=== PATIENT | female | born 1990 | race American Indian/Alaskan Native ===

== ENCOUNTER 2020-01-14 01:09 | Emergency (ER) | payer SELFPAY ==
[2020-01-14 02:07] VITALS: BP 123/83
[2020-01-14] MEDS ORDERED: dexAMETHasone 20 MG/5 ML VIAL IV ONE (04:29)
[2020-01-14] MEDS ORDERED: IBUPROFEN ORAL LIQD 100 MG/5 ML ORAL.LIQD PO ONE (04:34)
--- NOTE | 2020-01-14 05:59 | Emergency Department Report ---
ED ENT HPI - General Chief complaint: Sore Throat Stated complaint: THROAT PAIN/CHEST PAIN Time Seen by Provider: 01/14/20 04:29 Source: patient Mode of arrival: Ambulatory Limitations: No Limitations - History of Present Illness Initial comments: Patient is a 29-year-old -[place] female who presents with sore throat x2 days. Patient has history of recurrent strep throat. This episode started 2 mornings ago. Patient states 410 pain and burning with swallowing. Patient denies history of asthma or bronchitis. She states nocturnal fever no T-max recorded at home temp is 98.8 in triage today there is no tachycardia there is no nausea vomiting. There is no shortness of breath no stridor no sinus pain or pressure.. There is no ear pain. There are no palpitations, dizziness, or lightheadedness. Patient is tolerating p.o. intake MD complaint: sore throat Onset/Timin -: days(s) Location: throat Severity: moderate Severity scale (0 -10): 5 Quality: burning, sharp Consistency: constant Improves with: none Worsens with: swallowing, eating Associated Symptoms: fever, pain with swallowing, sore throat - Related Data Previous Rx's Medication Instructions Recorded Last Taken Type Benzocaine/Mentho [Cepacol X 8 each MM Q4H PRN #3 packet 01/14/20 Unknown Rx Strength] Clindamycin [Clindamycin CAP] 300 mg PO Q8H 10 Days #30 cap 01/14/20 Unknown Rx Ibuprofen [Motrin 800 MG tab] 800 mg PO Q8HR PRN #30 tablet 01/14/20 Unknown Rx dexAMETHasone [Decadron] 4 mg PO Q12H 2 Days #4 tablet 01/14/20 Unknown Rx Allergies Allergy/AdvReac Type Severity Reaction Status Date / Time morphine Allergy Hives Verified 01/14/20 02:14 ED Dental HPI - General Chief complaint: Sore Throat Stated complaint: THROAT PAIN/CHEST PAIN Time Seen by Provider: 01/14/20 04:29 Source: patient Mode of arrival: Ambulatory Limitations: No Limitations - Related Data Previous Rx's Medication Instructions Recorded Last Taken Type Benzocaine/Mentho [Cepacol X 8 each MM Q4H PRN #3 packet 01/14/20 Unknown Rx Strength] Clindamycin [Clindamycin CAP] 300 mg PO Q8H 10 Days #30 cap 01/14/20 Unknown Rx Ibuprofen [Motrin 800 MG tab] 800 mg PO Q8HR PRN #30 tablet 01/14/20 Unknown Rx dexAMETHasone [Decadron] 4 mg PO Q12H 2 Days #4 tablet 01/14/20 Unknown Rx Allergies Allergy/AdvReac Type Severity Reaction Status Date / Time morphine Allergy Hives Verified 01/14/20 02:14 ED Review of Systems ROS: Stated complaint: THROAT PAIN/CHEST PAIN Other details as noted in HPI Constitutional: chills, fever Eyes: denies: eye pain, eye discharge, vision change ENT: throat pain Respiratory: denies: cough, shortness of breath, wheezing Cardiovascular: denies: chest pain, palpitations Endocrine: no symptoms reported Gastrointestinal: denies: abdominal pain, nausea, vomiting, diarrhea Genitourinary: denies: urgency, dysuria, discharge Musculoskeletal: denies: back pain, joint swelling, arthralgia Skin: denies: rash, lesions Neurological: as per HPI Psychiatric: denies: anxiety, depression Hematological/Lymphatic: denies: easy bleeding, easy bruising ED Past Medical Hx - Past Medical History Previous Medical History?: Yes Hx Asthma: Yes 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 - Surgical History Past Surgical History?: Yes Additional Surgical History: X 2 - Social History Smoking Status: Current Every Day Smoker Substance Use Type: Marijuana - Medications Home Medications: Home Medications Medication Instructions Recorded Confirmed Last Taken Type Benzocaine/Mentho [Cepacol X 8 each MM Q4H PRN #3 packet 01/14/20 Unknown Rx Strength] Clindamycin [Clindamycin CAP] 300 mg PO Q8H 10 Days #30 cap 01/14/20 Unknown Rx Ibuprofen [Motrin 800 MG tab] 800 mg PO Q8HR PRN #30 tablet 01/14/20 Unknown Rx dexAMETHasone [Decadron] 4 mg PO Q12H 2 Days #4 tablet 01/14/20 Unknown Rx ED Physical Exam - General Limitations: No Limitations General appearance: alert, in no apparent distress - Head Head exam: Present: atraumatic, normocephalic, normal inspection - Eye Eye exam: Present: normal appearance, PERRL, EOMI Pupils: Present: normal accommodation - ENT ENT exam: Present: mucous membranes moist, TM's normal bilaterally, normal external ear exam - Expanded ENT Exam Expanded Throat exam: Positive: tonsillar erythema, tonsillomegaly, tonsillar exudate, other (uvula midline no stridor ). Negative: R peritonsillar mass, L peritonsillar mass - Neck Neck exam: Present: normal inspection, full ROM, lymphadenopathy. Absent: tenderness, meningismus, thyromegaly - Respiratory Respiratory exam: Present: normal lung sounds bilaterally. Absent: respiratory distress, wheezes, stridor, chest wall tenderness - Cardiovascular Cardiovascular Exam: Present: regular rate, normal rhythm, normal heart sounds. Absent: systolic murmur, diastolic murmur, rubs, gallop - GI/Abdominal GI/Abdominal exam: Present: soft, normal bowel sounds. Absent: distended, tenderness, bruit, hernia - Rectal Rectal exam: Present: deferred - Extremities Exam Extremities exam: Present: normal inspection, full ROM. Absent: tenderness - Back Exam Back exam: Present: normal inspection. Absent: tenderness, CVA tenderness (R), CVA tenderness (L) - Neurological Exam Neurological exam: Present: alert, oriented X3, CN II-XII intact, normal gait - Psychiatric Psychiatric exam: Present: normal affect, normal mood - Skin Skin exam: Present: warm, dry, intact, normal color. Absent: rash ED Course Vital Signs 01/14/20 01:58 Temperature 98.8 F Pulse Rate 94 H Respiratory 18 Rate Blood Pressure 123/83 O2 Sat by Pulse 99 Oximetry ED Medical Decision Making - Medical Decision Making Symptoms improved with medications given in ED. This is not a peritonsillar abscess. Plan patient will be DC to home with prescriptions antibiotics, steroids, NSAIDs, patient will follow-up with PCP in 2 to 3 days. Will return to ED should symptoms worsen, throat swelling, hot potato voice. Patient verbalized agreement and understanding with discharge plan , Critical care attestation.: If time is entered above; I have spent that time in minutes in the direct care of this critically ill patient, excluding procedure time. ED Disposition Clinical Impression: Pharyngitis Qualifiers: Pharyngitis/tonsillitis etiology: unspecified etiology Qualified Code(s): J02.9 - Acute pharyngitis, unspecified Disposition: DC-01 TO HOME OR SELFCARE Is pt being admited?: No Does the pt Need Aspirin: No Condition: Stable Instructions: Pharyngitis in Children (ED) Prescriptions: Benzocaine/Mentho [Cepacol X Strength] 8 each MM Q4H PRN #3 packet PRN Reason: throat pain Clindamycin [Clindamycin CAP] 300 mg PO Q8H 10 Days #30 cap dexAMETHasone [Decadron] 4 mg PO Q12H 2 Days #4 tablet Ibuprofen [Motrin 800 MG tab] 800 mg PO Q8HR PRN #30 tablet PRN Reason: Pain , Severe (7-10) Referrals: JEAN SEBASTIAN MD [Staff Physician] - 3-5 Days Forms: Work/School Release Form(ED) Time of Disposition: 06:08
== END 2020-01-14 06:34 | disposition home or self-care (01) ==
LOC: ED 01:09
DX: J02.9 Acute pharyngitis, unspecified (principal); J45.909 Unspecified asthma, uncomplicated; F17.200 Nicotine dependence, unspecified, uncomplicated; F12.90 Cannabis use, unspecified, uncomplicated; Z88.6 Allergy status to analgesic agent; Z79.899 Other long term (current) drug therapy; Z98.890 Other specified postprocedural states
CPT/HCPCS: 96365; 96375; 99282; J1100

== ENCOUNTER 2020-02-03 00:37 | Emergency (ER) | payer SELFPAY ==
[2020-02-03 01:17] VITALS: BP 128/89
--- NOTE | 2020-02-03 02:33 | XRay Report ---
CHEST 1 VIEW INDICATION / CLINICAL INFORMATION: Chest Pain. COMPARISON: None available. FINDINGS: SUPPORT DEVICES: None. HEART / MEDIASTINUM: No significant abnormality. LUNGS / PLEURA: No significant pulmonary or pleural abnormality. No pneumothorax. ADDITIONAL FINDINGS: No significant additional findings. IMPRESSION: 1. No acute findings. Signer Name: Massimo Joaquin MD Signed: 02/03/2020 2:29 AM Workstation Name: [id number]
== END 2020-02-03 01:00 | disposition left against medical advice (07) ==
LOC: ED 00:37
DX: R07.89 Other chest pain (principal); R51 Headache; Z53.21 Procedure and treatment not carried out due to patient leaving prior to being seen by health care provider
CPT/HCPCS: 71045; 93005